=== PATIENT | male | born 1995 | race Caucasian/White ===

== ENCOUNTER 2019-02-27 15:17 | Emergency (ER) | payer SELFPAY ==
[2019-02-27 15:48] VITALS: BP 124/78
--- NOTE | 2019-02-27 15:49 | UC ---
Respiratory Complaint HPI - HPI Summary HPI Summary: 23 y/o male presents to the urgent care c/o sinus congestion, w/ yellowish nasal discharge, moderate PND, scratchy throat for the past week. Symptoms worsen about 3 days ago when he developed productive cough and hasn't been able to sleep well at night due to cough. His mother recently had similar symptoms and was Dx w/ Bronchitis. He thinks he has bronchitis. He has not taken any medications to alleviate symptoms. He had chills last night. Pain is 2/10 sore throat and mild sinus pain and B/L ear pressure. Pt denies fever, SOB, dizziness ,neck pain, abdominal pain, chest pain, N/V/D. - History of Current Complaint Chief Complaint: UCRespiratory Stated Complaint: COUGH Time Seen by Provider: 02/27/19 15:48 Hx Obtained From: Patient Onset/Duration: Gradual Onset, Lasting Weeks - 1 week, Worse Since - 3 days ago Timing: Intermittent Episodes Severity Initially: Mild Severity Currently: Mild Pain Intensity: 2 - sore throat and sinus pain Pain Scale Used: 0-10 Numeric Character: Cough: Productive, Sputum Description: - yellowish Aggravating Factors: Recumbent Position, Other - moderate PND yellowish Alleviating Factors: Nothing Associated Signs And Symptoms: Positive: Chills, URI, Nasal Congestion - yellowish discahrge, Sinus Discomfort. Negative: Dyspnea, Wheezing - Risk Factors Pulmonary Embolism Risk Factors: Negative Cardiac Risk Factors: Negative Pseudomonas Risk Factors: Negative Tuberculosis Risk Factors: Negative - Allergies/Home Medications Allergies/Adverse Reactions: Allergies Allergy/AdvReac Type Severity Reaction Status Date / Time latex Allergy "I swell Verified 02/27/19 15:44 up, turn red." Sulfa (Sulfonamide Allergy Hives Verified 02/27/19 15:44 Antibiotics) PMH/Surg Hx/FS Hx/Imm Hx Previously Healthy: Yes - Pt deneis PMHX - Surgical History Surgical History: Yes Surgery Procedure, Year, and Place: Ear Tubes - Family History Known Family History: Positive: Cardiac Disease, Hypertension, Diabetes - Social History Occupation: Employed Full-time Lives: With Family Alcohol Use: Occasionally Substance Use Type: None Smoking Status (MU): Former Smoker Type: Cigars Length of Time of Smoking/Using Tobacco: <1/4 PPD x 1 Month Review of Systems All Other Systems Reviewed And Are Negative: Yes Constitutional: Positive: Chills Skin: Positive: Negative Eyes: Positive: Negative ENT: Positive: Sore Throat, Ear Ache - B/L ear pressure, Nasal Discharge - yellowish, Sinus Congestion, Sinus Pain/Tenderness, Other - moderate yellowish PND Respiratory: Positive: Cough - productive w/ yellowish phlegm Cardiovascular: Positive: Negative Gastrointestinal: Positive: Negative Genitourinary: Positive: Negative Motor: Positive: Negative Neurovascular: Positive: Negative Musculoskeletal: Positive: Negative Neurological: Positive: Headache Psychological: Positive: Negative Is Patient Immunocompromised?: No Physical Exam - Summary Physical Exam Summary: Vitals: reviewed General: Well developed, well-nourished male patient with NAD. Head and face: Normocephalic and atraumatic, Positive tenderness over the frontal and maxillary sinuses.. Eyes: PERRLA, EOMI x 2. Normal conjunctiva. No eye discharge. ENT: Ears and TM with normal limits. Nose: edematous and erythematous nasal mucosa with with yellowish discharge and erythematous mucosa. Pharynx with erythema, no exudate. moderate yellowish PND Neck: Supple, no JVD, no carotid bruits and no lymphadenopathy. Lungs: clear, no rales, no rhonchi, no wheezes. CVS: RRR, S1 and S2 present no murmurs or gallops appreciated. Abdomen: soft nontender with positive bowel sounds. Extremities: no edema noted. Neuro: WNL. Skin: warm and dry Triage Information Reviewed: Yes Vital Signs: Initial Vital Signs Temp 99.4 F 02/27/19 15:41 Pulse 94 02/27/19 15:41 Resp 18 02/27/19 15:41 BP 124/78 02/27/19 15:41 Pulse Ox 98 02/27/19 15:41 Respiratory Course/Dx - Course Course Of Treatment: 23 y/o male presents to the urgent care c/o sinus congestion, w/ yellowish nasal discharge, moderate PND, scratchy throat for the past week. Symptoms worsen about 3 days ago when he developed productive cough and hasn't been able to sleep well at night due to cough. His mother recently had similar symptoms and was Dx w/ Bronchitis. He thinks he has bronchitis. He has not taken any medications to alleviate symptoms. He had chills last night. Pain is 2/10 sore throat and mild sinus pain and B/L ear pressure. Pt denies fever, SOB, dizziness ,neck pain, abdominal pain, chest pain, N/V/D. Hx obtained. Pt w/ acute bacterial sinusitis on examination. Pt with 1 weekof symptoms getting worse. Pt Rx Amoxicillin PO and flonase nasal spray. Advised to take Robitussin for cough. Discharge instructions explained to Pt. Advised to Return to the clinic or PCP in 3 days if symptoms do not improve.Pt understood and agreed with plan of care. - Differential Dx/Diagnosis Differential Diagnosis/HQI/PQRI: Asthma, Bronchitis, Laryngitis, Lower Resp Infection, Sinusitis Provider Diagnosis: Acute bacterial sinusitis, Cough Discharge ED - Sign-Out/Discharge Documenting (check all that apply): Patient Departure - D/c home All imaging exams completed and their final reports reviewed: No Studies - Discharge Plan Condition: Stable Disposition: HOME Prescriptions: Amoxicillin PO (*) [Amoxicillin 500 MG CAP*] 500 mg PO Q12H #20 cap Fluticasone NASAL SPRAY 50MCG* [Flonase NASAL SPRAY 50MCG*] 2 spray BOTH NARES DAILY #1 btl Patient Education Materials: Sinusitis (ED) Referrals: [facility] [place] [facility]FERR[facility] [Outside] - 3 Days Additional Instructions: 1- Please increase fluid intake and rest. take full course of antibiotics to avoid resistance. Take yogurts w/ probiotics or Culturelle to protect your GI system 2-Use Flonase as directed to help drain fluid. Also buy saline drops to clear sinuses 3-Take Robitussin PO to alleviate cough. 4-Please f/u w/ your PCP in 3 days if symptoms do not improve for further management and treatment - Billing Disposition and Condition Condition: STABLE Disposition: Home
== END 2019-02-27 16:11 | disposition home or self-care (01) ==
LOC: UCCORT 15:17
DX: J01.90 Acute sinusitis, unspecified (principal); B96.89 Other specified bacterial agents as the cause of diseases classified elsewhere; R05 Cough; Z87.891 Personal history of nicotine dependence
CPT/HCPCS: 99202; G0463